=== PATIENT | male | born 1990 | race American Indian/Alaskan Native ===

== ENCOUNTER 2017-07-22 21:13 | Emergency (ER) | payer MEDICAID ==
[2017-07-22 21:36] VITALS: TEMP 98.2
[2017-07-22] MEDS: Sodium Chloride 0.9% 1,000 ML IV STA (22:02)
[2017-07-22 22:08] LABS: BASO # 0.02 K/mm3 (0.0-2.0); BASO % 0.4 % (0.0-3.0); EOS # 0.3 (0.0-0.7); EOS % 5.2 % (1.5-5.0); GRAN # 1.8 (1.4-6.5); GRAN % 35.7 % (50.0-68.0); HEMOGLOBIN 14.8 g/dL (14.0-18.0); LYMPH # 2.6 (1.2-3.4); LYMPH % 52.5 % (22.0-35.0); MEAN CELL VOLUME 82.4 fl (80.0-105.0); MEAN CORPUSCULAR HEMOGLOBIN 29.3 pg (25.0-35.0); MEAN CORPUSCULAR HGB CONC 35.6 g/dl (31.0-37.0); MEAN PLATELET VOLUME 8.8 fl (7.0-11.0); MONO # 0.3 (0.1-0.6); MONO % 6.2 % (1.0-6.0); RBC 5.05 10^6/uL (3.5-6.1); RED CELL DISTRIBUTION WIDTH 13.3 % (11.5-14.5)
[2017-07-22 22:18] LABS: INR 1.18 (0.93-1.08); PARTIAL THROMBOPLASTIN TIME 32.6 Seconds (25.1-36.5); PROTHROMBIN TIME 13.5 SECONDS (9.4-12.5)
[2017-07-22 22:22] LABS: ALB/GLOB RATIO 1.4 (1.1-1.8); ALBUMIN 4.4 g/dL (3.0-4.8); ALT/SGPT 35 U/L (7-56); AMYLASE 55 U/L (35-125); AST/SGOT 24 U/L (17-59); BLOOD UREA NITROGEN 14 mg/dL (7-21); CALCIUM 9.1 mg/dL (8.4-10.5); GFR AFRICAN-AMERICAN > 60; GFR NON-AFRICAN AMERICAN > 60; LIPASE 37 U/L (23-300)
--- NOTE | 2017-07-22 22:23 | ED PDOC ---
Arrival/HPI - General Chief Complaint: GI Problem Time Seen by Provider: 07/22/17 21:41 Historian: Patient - History of Present Illness Narrative History of Present Illness (Text): 07/22/17 22:18 26yo male with no pmhx present with complaint of crampy diffuse abdominal pain with associated nausea, vomiting and diarrhea. States he had one episode of vomiting this morning and 4 episodes of diarrhea. Notes that he had a bright blood with his diarrhea twice today. He denies fever, chills, shortness of breath diaphoresis, sick contact, chest pain, dizziness, weakness, urinary symptoms, any other complaint. Past Medical History - Provider Review Nursing Documentation Reviewed: Yes - Infectious Disease Hx of Infectious Diseases: None - Cardiac Hx Cardiac Disorders: No - Pulmonary Hx Respiratory Disorders: Yes Hx Asthma: Yes - Neurological Hx Neurological Disorder: No - HEENT Hx HEENT Disorder: No - Renal Hx Renal Disorder: No - Endocrine/Metabolic Hx Endocrine Disorders: No - Hematological/Oncological Hx Blood Disorders: Yes Hx Sickle Cell Trait: Yes - Integumentary Hx Dermatological Disorder: No - Musculoskeletal/Rheumatological Hx Musculoskeletal Disorders: No - Gastrointestinal Hx Gastrointestinal Disorders: No - Genitourinary/Gynecological Hx Genitourinary Disorders: No - Psychiatric Hx Psychophysiologic Disorder: No Hx Substance Use: No - Surgical History Other/Comment: rt rotator cuff repair. rt femur repair c titanium - Anesthesia Hx Anesthesia: Yes Hx Anesthesia Reactions: No Family/Social History - Physician Review Nursing Documentation Reviewed: Yes Family/Social History: Unknown Family HX Smoking Status: Never Smoked Hx Alcohol Use: Yes Frequency of alcohol use: Socially Hx Substance Use: No Allergies/Home Meds Allergies/Adverse Reactions: Allergies No Known Allergies Allergy (Verified 07/22/17 21:35) Review of Systems - Physician Review All systems were reviewed & negative as marked: Yes - Review of Systems Constitutional: Normal Eyes: Normal ENT: Normal Respiratory: Normal Cardiovascular: Normal Gastrointestinal: Abdominal Pain, Diarrhea, Nausea, Vomiting, Hematochezia. absent: Constipation, Hematemesis Genitourinary Male: Normal Musculoskeletal: Normal Skin: Normal Neurological: Normal Endocrine: Normal Hemo/Lymphatic: Normal Psychiatric: Normal Physical Exam Vital Signs Reviewed: Yes Vital Signs Temp Pulse Resp BP Pulse Ox 07/22/17 22:49 80 16 146/81 99 07/22/17 21:35 98.2 F 87 18 132/58 L 96 Temperature: Afebrile Blood Pressure: Normal Pulse: Regular Respiratory Rate: Normal Appearance: Positive for: Well-Appearing, Non-Toxic, Comfortable Pain Distress: None Mental Status: Positive for: Alert and Oriented X 3 - Systems Exam Head: Present: Atraumatic, Normocephalic Pupils: Present: PERRL Extroacular Muscles: Present: EOMI Conjunctiva: Present: Normal Mouth: Present: Moist Mucous Membranes Neck: Present: Normal Range of Motion Respiratory/Chest: Present: Clear to Auscultation, Good Air Exchange. No: Respiratory Distress, Accessory Muscle Use Cardiovascular: Present: Regular Rate and Rhythm, Normal S1, S2. No: Murmurs Abdomen: Present: Tenderness (Diffuse tenderness ), Normal Bowel Sounds, Guarding (Voluntary), Other (soft). No: Distention, Peritoneal Signs, Rebound, McBurney's Point Tender, Rovsing's Sign Present Back: Present: Normal Inspection Upper Extremity: Present: Normal Inspection. No: Cyanosis, Edema Lower Extremity: Present: Normal Inspection. No: Edema Neurological: Present: GCS=15, CN II-XII Intact, Speech Normal Skin: Present: Warm, Dry, Normal Color. No: Rashes Psychiatric: Present: Alert, Oriented x 3, Normal Insight, Normal Concentration Medical Decision Making ED Course and Treatment: 07/22/17 22:33 PT present to Emergency department for stated history. He was hemodynamically stable and in no distress in Emergency department. Lab was unremarkable with h/h wnl and no leukocytosis. PT was hydrated in Emergency department and he tolerated PO challenge. On re evaluation he notes that his pain improved. Result was DW the pt. He will be Dc home with rx of protonix/Zofran. Advised to [id number] BRAT diet and referred to a GI. - Lab Interpretations Lab Results: 07/22/17 22:04 07/22/17 22:04 Lab Results 07/22/17 22:16: Urine Color Yellow, Urine Appearance Clear, Urine pH 6.0, Ur Specific [place] 1.020, Urine Protein Negative, Urine Glucose (UA) Negative, Urine Ketones Negative, Urine Blood Negative, Urine Nitrate Negative, Urine Bilirubin Negative, Urine Urobilinogen 0.2, Ur Leukocyte Esterase Negative 07/22/17 22:04: Sodium 142, Potassium 4.0, Chloride 105, Carbon Dioxide 25, Anion Gap 16, BUN 14, Creatinine 0.8, Est GFR ( Amer) > 60, Est GFR (Non- Af Amer) > 60, Random Glucose 98, Calcium 9.1, Magnesium 1.9, Total Bilirubin 0.3, AST 24, ALT 35, Alkaline Phosphatase 48, Total Protein 7.5, Albumin 4.4, Globulin 3.1, Albumin/Globulin Ratio 1.4, Amylase 55, Lipase 37 07/22/17 22:04: PT 13.5 H, INR 1.18 H, APTT 32.6 07/22/17 22:04: WBC 5.0, RBC 5.05, Hgb 14.8, Hct 41.6 L, MCV 82.4, MCH 29.3, MCHC 35.6, RDW 13.3, Plt Count 251, MPV 8.8, Gran % 35.7 L, Lymph % (Auto) 52.5 H, [place] % (Auto) 6.2 H, Eos % (Auto) 5.2 H, Baso % (Auto) 0.4, Gran # 1.80, Lymph # (Auto) 2.6, [place] # (Auto) 0.3, Eos # (Auto) 0.3, Baso # (Auto) 0.02 - Medication Orders Current Medication Orders: Discontinued Medications Sodium Chloride (Sodium Chloride 0.9%) 1,000 mls @ 1,000 mls/hr IV .Q1H STA Stop: 07/22/17 22:40 Last Admin: 07/22/17 22:02 Dose: 1,000 mls/hr eMAR Start Stop Document 07/22/17 22:02 CNR (Rec: 07/22/17 22:02 CNR [id number]) Intravenous Solution Start Date 07/22/17 Start Time 22:02 Ondansetron HCl (Zofran Inj) 4 mg IVP STAT STA Stop: 07/22/17 21:42 Last Admin: 07/22/17 22:02 Dose: 4 mg IVP Administration Document 07/22/17 22:02 CNR (Rec: 07/22/17 22:02 CNR [id number]) Charges for Administration # of IVP Administrations 1 Pantoprazole Sodium (Protonix Inj) 40 mg IVP STAT STA Stop: 07/22/17 21:42 Last Admin: 07/22/17 22:02 Dose: 40 mg IVP Administration Document 07/22/17 22:02 CNR (Rec: 07/22/17 22:02 CNR [id number]) Charges for Administration # of IVP Administrations 1 Disposition/Present on Arrival - Present on Arrival Any Indicators Present on Arrival: No History of DVT/PE: No History of Uncontrolled Diabetes: No Urinary Catheter: No History of Decub. 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 Return to Emergency department for any new symptoms Prescriptions: Ondansetron ODT [Zofran ODT] 4 mg PO Q6 #7 odt Pantoprazole Sodium [Protonix] 40 mg PO DAILY #15 tablet.dr Referrals: Ayaan Beltran MD [Staff Provider] - Follow up with primary Forms: [employer] (Greek)
[2017-07-22 22:32] LABS: URINE BILIRUBIN NEGATIVE (NEGATIVE); URINE BLOOD NEGATIVE (NEGATIVE); URINE GLUCOSE (UA) NEGATIVE (NEGATIVE); URINE LEUKOCYTE ESTERASE NEGATIVE Leu/uL (NEGATIVE); URINE PROTEIN NEGATIVE mg/dL (<30 mg/dL); URINE UROBILINOGEN 0.2 E.U./dL (<1 E.U./dL)
[2017-07-22 22:35] LABS: URINE APPEARANCE CLEAR (CLEAR); URINE COLOR YELLOW (YELLOW)
[2017-07-22 22:50] VITALS: BP 146/81; PULSE 80; RESP 16; O2SAT 99
== END 2017-07-22 22:49 | disposition home or self-care (01) ==
LOC: ED 21:13
DX: R10.9 Unspecified abdominal pain (principal); R11.10 Vomiting, unspecified; R19.7 Diarrhea, unspecified
CPT/HCPCS: 80053; 81003; 82150; 83690; 83735; 85025; 85610; 85730; 96374; 96375; 99283; C9113; J2405; J7030